=== PATIENT | female | born 1960 | race Caucasian/White ===

== ENCOUNTER → 2025-02-21 | Outpatient (CLI) | payer OTHER, SELFPAY ==
--- NOTE | 2025-02-21 08:45 | XR_ITS ---
Examination: Screening digital mammography, bilateral Computer aided detection 3-D breast Tomosynthesis, bilateral Date and time of exam: February 21, 2025 0854 hours Compared to mammograms dating to October 01, 2009 Indication: Screening Technique: Nonmagnified MLO, CC views of the breasts to been obtained, reconstructed from 3-D Tomosynthesis images. R2 computer aided detection program utilized for evaluation of suspicious masses and/or abnormal calcifications. 3-D Tomosynthesis images obtained. Findings: The breasts are heterogeneously dense, which may obscure small masses 14 mm focal asymmetry upper outer left breast Impression: BI-RADS Category 0: Incomplete: Need additional imaging evaluation Recommend follow-up spot tomographic views of 14 mm focal asymmetry upper outer left breast as well as left breast sonography to complete the workup
== END | disposition home or self-care (01) ==
LOC: CDIM 08:19
PROVIDERS: Referring Provider Family Medicine; Visit Provider Family Medicine
DX: Z12.31 Encounter for screening mammogram for malignant neoplasm of breast (principal); N64.89 Other specified disorders of breast
CPT/HCPCS: 77063; 77067

== ENCOUNTER → 2025-03-08 | Outpatient (CLI) | payer OTHER, SELFPAY ==
[2025-03-08 08:44] LABS: Basophils % (Auto) 1 % (0-2.5); Eosinophils # (Auto) 0.1 Thou/mm3 (0.0-0.5); Eosinophils % (Auto) 3 % (0-10); Hematocrit 39.2 % (36.0-46.0); Hemoglobin 13.8 g/dL (12.0-16.0); Immature Granulocytes % (Auto) 0 % (0-0); Immature Granulocytes Auto 0.01 Thou/mm3 (0.00-0.00); Lymphocytes # (Auto) 1.6 Thou/mm3 (1.0-4.8); Lymphocytes % (Auto) 29 % (10-50); Mean Corpuscular HGB Conc 35.2 g/dl (31.0-37.0); Mean Corpuscular Hemoglobin 30.9 pg (25.0-35.0); Mean Corpuscular Volume 88 fL (80-100); Monocytes # (Auto) 0.4 Thou/mm3 (0.0-0.8); Monocytes % (Auto) 7 % (0-12); Neutrophils # (Auto) 3.2 Thou/mm3 (1.8-7.7); Neutrophils % (Auto) 60 % (37-80); Nucleated Red Blood Cell % 0 /100 WBC (0); Platelet Count 244 Thou/mm3 (140-440); RDW Standard Deviation 42.5 fL (36.4-46.3); Red Blood Count 4.47 Miln/mm3 (4.00-5.20); White Blood Count 5.3 Thou/mm3 (3.6-11.0)
[2025-03-08 08:48] LABS: Collection Type, Urine Clean Catch
[2025-03-08 08:54] LABS: Alanine Aminotransferase 42 U/L (10-49); Albumin, Serum 4.4 gm/dL (3.4-4.8); Albumin/Globulin Ratio 1.8 (1.2-2.2); Alkaline Phosphatase 72 U/L (46-116); Anion Gap 7 (7-16); Aspartate Amino Transferase 28 U/L (0-34); BUN/Creatinine Ratio 12 Ratio (12-20); Bilirubin,Total 0.7 mg/dL (0.3-1.2); Blood Urea Nitrogen 11 mg/dL (9-23); Carbon Dioxide 28.4 mMol/L (20.0-31.0); Cardiac Risk Estimate 3.3 RATIO (3.7-5.6); Chloride 107 mMol/L (98-107); Cholesterol 221 mg/dL (132-200); Creatinine (Component) 0.9 mg/dL (0.6-1.3); Globulin 2.4 gm/dL (2.3-3.5); Glucose 112 mg/dL (74-106); HDL Cholesterol 67 mg/dL (40-60); LDL Cholesterol,Calculated 125 mg/dL (0-130); Osmolality,Calculated 283 (275-295); Potassium 4.6 mMol/L (3.4-5.1); Sodium 142 mMol/L (136-145); Thyroid Stimulating Hormone 2.44 uIU/mL (0.55-4.78); Total Protein 6.8 gm/dL (5.7-8.2); Triglycerides 145 mg/dL (30-150); eGFR > 60 See Note
[2025-03-08 09:25] LABS: Bacteria,Urine Rare; Bilirubin,Urine Negative (Negative); Blood,Urine Negative (Negative); Clarity,Urine Clear (Clear/Hazy); Color,Urine Lt-Yellow (Lt Yel-Yel); Glucose, Urine Negative (Negative); Ketones,Urine Negative (Negative); Leukocyte Esterase,Urine Negative (Negative); Nitrite,Urine Negative (Negative); Protein,Urine Negative (Neg - Trace); RBC,Urine 1 /hpf (0-3); Specific Gravity,Urine 1.008 (1.001-1.035); Squamous Epithelial Cell,Urine < 1 /hpf (0-5); Urobilinogen,Urine Negative mg/dL (0.0-1.0); WBC,Urine 1 /hpf (0-5)
== END | disposition home or self-care (01) ==
PROVIDERS: PCP Family Medicine; Referring Provider Family Medicine; Visit Provider Family Medicine
DX: Z00.00 Encounter for general adult medical examination without abnormal findings (principal)
CPT/HCPCS: 36415; 80053; 80061; 81001; 84443; 85025

== ENCOUNTER → 2025-03-22 | Outpatient (CLI) | payer OTHER, SELFPAY ==
--- NOTE | 2025-03-22 09:30 | XR_ITS ---
Examination: Breast ultrasound, unilateral, left complete Date and time of exam: March 22, 2025 0935 hours INDICATIONS: Mammogram February 21, 2025 14 mm focal asymmetry upper outer left breast Technique: Real-time caraballo scale ultrasonographic imaging performed left breast including all 4 quadrants as well as nipple retroareolar and axillary region. Findings: 8:00 cyst 4 x 5 mm No solid nodules IMPRESSION: BI-RADS Category 2: Benign findings
--- NOTE | 2025-03-22 10:00 | XR_ITS ---
Examination: Diagnostic digital mammography, unilateral, left Computer aided detection 3-D breast Tomosynthesis, unilateral Date and time of exam: March 22, 2025 0945 hours INDICATIONS: Mammogram February 21, 2025 14 mm focal asymmetry upper outer left breast Technique: Nonmagnified MLO, CC views of the left breast have been obtained, reconstructed from 3-D Tomosynthesis images. R2 computer aided detection program utilized for evaluation of suspicious masses and/or abnormal calcifications. 3-D Tomosynthesis images obtained. Findings: The breast is heterogeneously dense, which may obscure small masses Spot compression views do not confirm suspicious mass Impression: BI-RADS category 2: Benign findings Return to yearly follow-up mammography
== END | disposition home or self-care (01) ==
LOC: CDIM 09:06
PROVIDERS: PCP Family Medicine; Referring Provider Family Medicine; Visit Provider Family Medicine
DX: R92.2 Inconclusive mammogram (principal); N60.02 Solitary cyst of left breast; R92.332 Mammographic heterogeneous density, left breast
CPT/HCPCS: 76641; 77061; 77065; G0279

== ENCOUNTER → 2025-06-14 | Outpatient (CLI) | payer OTHER, SELFPAY ==
[2025-06-14 09:36] LABS: Glucose Estimated Average 123 mg/dL (80-131); Hemoglobin A1C 5.9 % Hgb (4.8-6.0)
== END | disposition home or self-care (01) ==
PROVIDERS: PCP Family Medicine; Referring Provider Family Medicine; Visit Provider Family Medicine
DX: R73.01 Impaired fasting glucose (principal)
CPT/HCPCS: 36415; 83036

== ENCOUNTER → 2025-07-22 | Outpatient (CLI) | payer OTHER, SELFPAY ==
--- NOTE | 2025-07-22 10:30 | XR_ITS ---
EXAMINATION: Thoracic spine 3 views TECHNIQUE: AP, lateral, coned lateral upper dorsal spine 3 views Date and time: July 22, 2025, 10:49 a.m. INDICATIONS: Upper back pain beginning 4 days ago FINDINGS: Significant osteopenia. Upper thoracic levoscoliosis 10 degrees mid thoracic dextroscoliosis 10 degrees No thoracic fracture Mild thoracic spondylosis Mild diffuse thoracic disc narrowing IMPRESSION: Mild thoracic degenerative disc disease
--- NOTE | 2025-07-22 10:30 | XR_ITS ---
EXAMINATION: Lumbar spine 7 views TECHNIQUE: AP, lateral, coned lateral and lower lumbar spine, standing lateral flexion standing extension, RPO, LPO 7 views Date and time: July 22, 2025, 10:50 a.m. INDICATIONS: Lower back pain 4 days FINDINGS: Adequate alignment lumbar vertebral bodies on the lateral view No lumbar fracture. Mildly reduced range of motion between flexion and extension. No significant lumbar disc narrowing No spondylolisthesis IMPRESSION: No lumbar fracture or significant arthritic change
== END | disposition home or self-care (01) ==
LOC: CDIM 10:20
PROVIDERS: PCP Family Medicine; Referring Provider Family Medicine; Visit Provider Family Medicine
DX: M54.50 Low back pain, unspecified (principal); M51.34 Other intervertebral disc degeneration, thoracic region
CPT/HCPCS: 72070; 72114